=== PATIENT | female | born 1935 | race Caucasian/White ===

== ENCOUNTER 2017-07-23 05:33 | Observation (INO) | payer OTHER, MEDICARE ==
--- NOTE | 2017-07-23 05:52 | EDPHY ---
H & P Time Seen by Provider: 07/23/17 05:40 HPI/ROS: Chief Complaint: Abdominal pain HPI: 81-year-old woman who is visiting family from out of town for the woke this morning with pain in her right lower quadrant. Patient states the pain was initially severe. Does not have a history of similar pain in the past. Right now is a 5 on 10. It was worsened that earlier. She is not taking any medication for this. No nausea or vomiting. No diarrhea or constipation. She has had some increasing urination but has been drinking more water recently. Has a history of a hysterectomy in the past , otherwise no abdominal surgeries. No fevers or chills. No chest pain or shortness of breath. ROS: 10 point Review of Systems is negative except as noted in the HPI. PMH: Parkinson's disease, hyperlipidemia, osteoporosis Social History: No smoking, no alcohol, no recreational drug use Family History: non-contributory Physical Exam: Gen: Awake, Alert, No Distress HEENT: Nose: no rhinorrhea Eyes: PERRLA, EOMI Mouth: Moist mucosa Neck: Supple, no JVD Chest: nontender, lungs clear to auscultation Heart: S1, S2 normal, no murmur Abd: Soft, she has diffuse abdominal tenderness with voluntary guarding, pain is worse in the right right lower quadrant. Back: no CVA tenderness, no midline tenderness Ext: no edema, non-tender, full range of motion without pain Skin: no rash Neuro: CN II-XII intact, Sensation grossly intact, Strength 5/5 in bilateral upper and lower extremities (Carlos Tobin) Constitutional: Initial Vital Signs Temperature (C) 36.5 C 07/23/17 05:46 Heart Rate 73 07/23/17 05:46 Respiratory Rate 16 07/23/17 05:46 Blood Pressure 208/119 H 07/23/17 05:46 O2 Sat (%) 95 07/23/17 05:46 O2 Delivery Mode Room Air Allergies/Adverse Reactions: lorazepam [From Ativan] Allergy (Verified 07/23/17 05:43) Home Medications: Medication Instructions Recorded Aricept 07/23/17 Atorvastatin Calcium 07/23/17 Eliquis 07/23/17 Metoprolol Tartrate 07/23/17 Sinemet 25/100 MG (*) 07/23/17 Medical Decision Making ED Course/Re-evaluation: 9-year-old female presenting with right lower abdominal pain. She will need CT scan. Actively range her hip with full range of motion without tenderness. Patient's laboratory evaluations are unremarkable at this time. She is pending CT scan 0700 patient signed out to the Dr. Javed pending CT scan results. (Carlos Tobin) This patient was turned over to me at change of shift. I discussed the CT results with Dr. Mak Do on [address] Do feels like there is clearly some chronic constipation with small bowel fecalization but there is a question of a cecal volvulus that might be early. I reexamined the patient and she clearly still has right lower quadrant tenderness and a little bit of distention which is out of proportion to the rest of her abdominal exam. I had a long discussion with the patient and her family and we will admit the patient for a few hours of observation. In the interim we will give her Gastrografin orally and perform a upper GI small bowel follow-through type procedure and hopefully clean out her bowels in addition. Although she has had bowel movements here she still having right lower quadrant tenderness. I will admit this patient to Dr. dangelo seen from the hospitalist service. (Viktor Javed) - Data Points Laboratory Results: Laboratory Results 07/23/17 06:00 07/23/17 06:00 07/23/17 07/23/17 07/23/17 06:30 06:00 06:00 WBC 5.84 10^3/uL 10^3/uL (3.80-9.50) RBC 4.99 10^6/uL 10^6/uL (4.40-6.38) Hgb 16.3 g/dL g/dL (13.7-17.5) Hct 48.4 % % (40.0-51.0) MCV 97.0 fL fL (81.5-99.8) MCH 32.7 pg pg (27.9-34.1) MCHC 33.7 g/dL g/dL (32.4-36.7) RDW 12.9 % % (11.5-15.2) Plt Count 186 10^3/uL 10^3/uL (150-400) MPV 11.0 fL fL (8.7-11.7) Neut % (Auto) 54.4 % % (39.3-74.2) Lymph % (Auto) 34.9 % % (15.0-45.0) Coal % (Auto) 7.7 % % (4.5-13.0) Eos % (Auto) 1.9 % % (0.6-7.6) Baso % (Auto) 0.9 % % (0.3-1.7) Nucleat RBC Rel Count 0.0 % % (0.0-0.2) Absolute Neuts (auto) 3.18 10^3/uL 10^3/uL (1.70-6.50) Absolute Lymphs (auto) 2.04 10^3/uL 10^3/uL (1.00-3.00) Absolute Monos (auto) 0.45 10^3/uL 10^3/uL (0.30-0.80) Absolute Eos (auto) 0.11 10^3/uL 10^3/uL (0.03-0.40) Absolute Basos (auto) 0.05 10^3/uL 10^3/uL (0.02-0.10) Absolute Nucleated RBC 0.00 10^3/uL 10^3/uL (0-0.01) Immature Gran % 0.2 % % (0.0-1.1) Immature Gran # 0.01 10^3/uL 10^3/uL (0.00-0.10) Sodium 147 mEq/L H mEq/L (134-144) Potassium 3.9 mEq/L mEq/L (3.5-5.2) Chloride 104 mEq/L mEq/L (97-110) Carbon Dioxide 33 mEq/l H mEq/l (22-31) Anion Gap 10 mEq/L mEq/L (8-16) BUN 25 mg/dL H mg/dL (7-23) Creatinine 0.8 mg/dL mg/dL (0.7-1.3) Estimated GFR > 60 Glucose 82 mg/dL mg/dL (70-100) Calcium 10.0 mg/dL mg/dL (8.5-10.4) Total Bilirubin 1.1 mg/dL mg/dL (0.1-1.4) AST 37 IU/L IU/L (17-59) ALT 52 IU/L IU/L (21-72) Alkaline Phosphatase 107 IU/L IU/L (38-126) Total Protein 6.9 g/dL g/dL (6.3-8.2) Albumin 4.1 g/dL g/dL (3.5-5.0) Lipase 200 IU/L IU/L (23-300) Urine Color PALE YELLOW Urine Appearance CLEAR Urine pH 6.0 (5.0-7.5) Ur Specific [place] 1.008 (1.002-1.030) Urine Protein NEGATIVE (NEGATIVE) Urine Ketones NEGATIVE (NEGATIVE) Urine Blood 1+ H (NEGATIVE) Urine Nitrate NEGATIVE (NEGATIVE) Urine Bilirubin NEGATIVE (NEGATIVE) Urine Urobilinogen NEGATIVE EU EU (0.2-1.0) Ur Leukocyte Esterase TRACE H (NEGATIVE) Urine RBC 1-3 /hpf /hpf (0-3) Urine WBC 1-3 /hpf /hpf (0-3) Ur Epithelial Cells TRACE /lpf /lpf (NONE-1+) Urine Glucose NEGATIVE (NEGATIVE) Medications Given: Discontinued Medications Sodium Chloride (Ns) 1,000 mls @ 0 mls/hr IV ONCE ONE; Wide Open PRN Reason: Protocol Stop: 07/23/17 06:06 Last Admin: 07/23/17 06:25 Dose: 1,000 mls Departure - Departure Disposition: [facility] Inpatient Acute Clinical Impression: Cecal volvulus, Constipation by delayed colonic transit Condition: Fair Referrals: ALEXANDER GRULLON [Other] - As per Instructions
[2017-07-23] MEDS ORDERED: NS 1,000 ML IV ONE (06:05)
[2017-07-23 06:08] LABS: % IMMATURE GRANULYOCYTES 0.2 % (0.0-1.1); ABSOLUTE IMMATURE GRANULOCYTES 0.01 10^3/uL (0.00-0.10); ADD DIFF? NO; ADD MORPH? NO; ADD SCAN? NO; ATYPICAL LYMPHOCYTE FLAG 0 (0-99); FRAGMENT RBC FLAG 0 (0-99); LEFT SHIFT FLG 0 (0-99); LIPEMIA HEMOLYSIS FLAG 80 (0-99); MEAN CELL HEMOGLOBIN 32.7 pg (27.9-34.1); MEAN CELL HEMOGLOBIN CONCENTR. 33.7 g/dL (32.4-36.7); PLATELET CLUMPS FLAG 10 (0-99); PLATELET COUNT 186 10^3/uL (150-400); RED CELL DISTRIBUTION WIDTH 12.9 % (11.5-15.2)
[2017-07-23] MEDS ORDERED: IOPAMIDOL (ISOVUE-300) 100 ML BTL ONE (06:26)
[2017-07-23 06:28] LABS: ALBUMIN 4.1 g/dL (3.5-5.0); ALKALINE PHOSPHATASE 107 IU/L (38-126); ANION GAP 10 mEq/L (8-16); BILIRUBIN,TOTAL 1.1 mg/dL (0.1-1.4); CARBON DIOXIDE 33 mEq/l (22-31); CHLORIDE 104 mEq/L (97-110); GLOMERULAR FILTRATION RATE > 60; GLUCOSE 82 mg/dL (70-100); POTASSIUM 3.9 mEq/L (3.5-5.2); SODIUM 147 mEq/L (134-144); TOTAL PROTEIN 6.9 g/dL (6.3-8.2)
[2017-07-23 06:40] LABS: COLOR PALE YELLOW; LEUKOCYTE ESTERASE,URINE TRACE (NEGATIVE); NITRITE,URINE NEGATIVE (NEGATIVE)
[2017-07-23 08:05] VITALS: RESP 18
[2017-07-23] MEDS ORDERED: ACETAMINOPHEN 325 MG TAB PO PRN (09:13)
[2017-07-23] MEDS ORDERED: ONDANSETRON 4 MG/2 ML VIAL IVP PRN (09:13)
[2017-07-23] MEDS ORDERED: ONDANSETRON DISINTEGRATING 4 MG TAB PO PRN (09:13)
[2017-07-23] MEDS ORDERED: NS 1,000 ML IV SCH (09:15)
[2017-07-23] MEDS ORDERED: METOPROLOL TARTRATE 25 MG TAB PO SCH (09:18)
[2017-07-23] MEDS ORDERED: CARBIDOPA/LEVODOPA 25 MG/100 MG TAB PO SCH ×4 (10:15→17:00)
--- NOTE | 2017-07-23 11:16 | ASMTCMCOM ---
CM Note CM Note Notes: Pt. is an 81-year-old woman visiting the [place] area for Thanksgiving. Pt. admitted to run tests due to her abdominal pain. Hx. hysterectomy, Parkinsons, osteoporosis, and hyperlipidemia. Pt. lives w/ her Declan in [place]. Anticipate indpendent d/c when ready. CM available should d/c POC change. Date Signed: 07/23/2017 11:15 AM Electronically Signed By:Ivone Ramírez LCSW
[2017-07-23 11:26] VITALS: BP 168/92; PULSE 63; TEMP 97.9; O2SAT 94
--- NOTE | 2017-07-23 12:00 | GCON ---
[f rep st] CONSULTATION DATE OF CONSULTATION: 07/23/2017 REFERRING PHYSICIAN: Viktor Javed MD HISTORY OF PRESENT ILLNESS: The patient is an 81-year-old woman with Parkinson disease who woke up abruptly in the early hours of the morning with abdominal pain. It was initially severe and has improved since coming into the emergency room. She has had a history of bloating but does not have nausea, vomiting. No sick contacts. She denies diarrhea. PAST HISTORY: Parkinson disease, hyperlipidemia, osteoporosis. PAST SURGICAL HISTORY: Hysterectomy. SOCIAL HISTORY: She denies tobacco, alcohol, and recreational drug use. She is traveling from the [facility] to visit family for the holidays. FAMILY HISTORY: Noncontributory. REVIEW OF SYSTEMS: Significant for symptoms associated with Parkinson disease, some constipation, some bloating. Otherwise, 10-point review of systems negative. PHYSICAL EXAM: VITALS: Reviewed. GENERAL: A pleasant, well-nourished, well- groomed woman, sitting up in bed with family at bedside. HEENT: Normocephalic. No gross hearing deficits. Mucous membranes moist. Pupils equal and round. No scleral icterus. LUNGS: Clear to auscultation bilaterally. No increased work of breathing. CARDIAC: Regular rate. ABDOMEN : Bowel sounds are hypoactive. She is slightly distended. ABDOMEN: Firm. She is tender to percussion. There are no peritoneal signs. SKIN: Warm and dry. NEURO: No obvious tremors. PSYCH: Mood and affect normal. RESULTS REVIEW: I personally reviewed her CT images and she has significant constipation. She has fecalization of the distal small bowel. There does not appear to be free fluid. There is also concern of a renal cell carcinoma due to a 1.5 cm right-sided renal mass. IMPRESSION AND PLAN: 81-year-old with acute onset abdominal pain that is improving. I have requested that she drink contrast and then get an x-ray ordered around noon. This will better show us the outline of the bowel. If she should have a bowel movement before then and her pain is improved, then the x-ray would not be needed. If her pain escalates, then we did briefly discuss going to the operating room. I am hopeful she will not need to go to the operating room. She will need to follow up with her care provider in [place] about the renal mass. I am also hoping that the Gastrografin will also be therapeutic and help clear out stool. I discussed with her the importance of good bowel protocol and talking about this with her primary care provider as well as with her neurologist. /[id number]/MODL MTDD
--- NOTE | 2017-07-23 12:15 | GHP ---
[f rep st] HISTORY AND PHYSICAL DATE OF ADMISSION: 07/23/2017 CHIEF COMPLAINT: Abdominal pain. HISTORY OF PRESENT ILLNESS: An 81-year-old female with a history of Parkinson's , visiting from [place], who arrived 72 hours prior to presentation and reports being in good state of health for the early part of her visit. Patient ate normally yesterday, drank what she described as a lot of fluids and went to sleep without complication. Patient awoke morning of presentation with severe abdominal discomfort, most pronounced in the right lower quadrant, associated with some nausea, no vomiting. Patient reports that she has been passing stools normally for her, which is every day or every other day, without blood. Patient denies any dysuria, hematuria, lower extremity edema, chest pain, shortness of breath, headaches, vision changes, subjective fevers or chills. PAST MEDICAL HISTORY: 1. Parkinson's-patient walks with a walker. 2. Hypertension. 3. Hyperlipidemia. SOCIAL HISTORY: Patient quit smoking 50 years ago. Does not drink alcohol or use illicit drugs. FAMILY HISTORY: Positive for a brother who had a volvulus. REVIEW OF SYSTEMS: A 10-point review is negative with the exception of that reported in the HPI. PHYSICAL EXAMINATION: VITAL SIGNS: Blood pressure 175/113, heart rate 64, respiratory rate 18, 95% on room air, temperature 36.3. GENERAL: This is a very healthy, pleasant elderly female, lying flat in bed. HEENT: Notable for moist mucous membranes. Eye exam is negative for any icterus. CARDIAC: Patient has regular rate and rhythm. A systolic murmur is appreciated. PULMONARY: She is clear to auscultation bilaterally. GASTROINTESTINAL: There are diminished bowel sounds. Abdomen is soft. She is tender to palpation in the right lower quadrant greater than the left. No rebound or guarding is appreciated. MUSCULOSKELETAL: Negative for any lower extremity edema. SKIN: Negative for any rashes. NEUROLOGIC: She is alert and oriented x3. PSYCHIATRIC: She is pleasant and cooperative on interview and examination. DATA: White count 5.8, hematocrit 48.4. Sodium 147, creatinine 0.8. Liver function tests are normal. Urinalysis shows trace leukocyte esterase, 1-[address] of the abdomen, which I personally reviewed and interpreted, shows constipation. The final radiographic read is not available, but the reported concern is for evolving cecal volvulus. ASSESSMENT AND PLAN: This is an 81-year-old female, presenting with complaints of abdominal pain. 1. Acute abdominal pain secondary to constipation, with concern for possible evolving cecal volvulus. Will admit the patient, keep n.p.o. minus medications and sips of water. Patient has received Gastrografin in the emergency department and will have upright KUB imaging performed in a couple hours. We will treat p.r.n. with pain medications if needed and IV fluids. The hope is that the patient will pass stool after taking the Gastrografin and relieve whatever constipation she has. Dr. Daniel from general surgery has been consulted and is following along. 2. Parkinson's. We will continue her home dosing of Sinemet. 3. Hypertension. We will continue her home medications. Systolics were in the 170s to 180s prior to taking her morning medications. 4. Prophylaxis. Holding on Lovenox as there is surgical consultation for possible volvulus. 5. Diet is n.p.o. with IV fluids. 6. Disposition: I expect in less than 2 midnights if the patient responds well to the Gastrografin and is able to successfully pass stool and have normal interval imaging. I have discussed the case with Dr. Daniel. She will be following along and helping interpret the upright KUB imaging this afternoon. /[id number]/MODL MTDD
--- NOTE | 2017-07-23 12:49 | SOAPPROG ---
SOAP Progress Note Assessment/Plan: Assessment: no evidence of volvulus. Will monitor symptoms. Plan: 07/23/17 12:48 Objective: Vital Signs Temp Pulse Resp BP Pulse Ox 36.6 C 63 18 168/92 H 94 07/23/17 11:26 07/23/17 11:26 07/23/17 11:26 07/23/17 11:26 07/23/17 11:26 ICD10 Worksheet Patient Problems: Problems Problem Status Onset Cecal volvulus Acute Constipation by delayed colonic transit Acute
--- NOTE | 2017-07-23 22:52 | GDS ---
[f rep st] DISCHARGE SUMMARY DISCHARGE DIAGNOSES: Include: 1. Acute abdominal pain. 2. Severe constipation. 3. Parkinson's. 4. Hypertension. HISTORY OF PRESENT ILLNESS: This is an 81-year-old female who presents with complaints of abdominal pain. For details of the patient's initial presentation, please see the History and Physical dated 09/22/2016. CONSULTATIVE SERVICES: General Surgery, Dr. Daniel. PROCEDURES: On 07/23/2017, patient underwent CT of the abdomen which showed constipation and concern for possible evolving cecal volvulus. HOSPITAL COURSE BY ISSUE: Acute abdominal pain. The patient has known Parkinson's, had visible cons tipation on film with right lower quadrant pain. Was admitted for concerns involving cecal volvulus. Patient was treated with Gastrografin with anticipated imaging. She successfully passed stool mult iple times, and then had normal imaging, un-concerning for possible volvulus. She was advanced to a normal diet which she tolerated, and she is discharged home with recommendations for ongoing stool ma nagement, to use prunes in the morning and MiraLAX in the afternoon if unsuccessful stooling by late afternoon. The patient is to follow with her primary care provider upon returning home to [place], a fter her visit to [place], [place]. MEDICATIONS: At the time of disposition, please reference medication reconciliation form printed on 07/23/2017. Of note, no medications were changed from her home regimen. A p.r.n. dosing of MiraLAX was added as needed for daily stooling. PENDING STUDIES: At the time of this dictation, none. TIME SPENT: I spent greater than 30 minutes in the planning and coordination of this discharge. /[id number]/MODL
--- NOTE | 2017-07-24 10:16 | ASDISCHSUM ---
Discharge Information Plan Status:Home with No Needs Medically Cleared to Leave:07/22/2017 Discharge Date:07/23/2017 03:08 PM CM D/C Disposition:Home, Routine, Self-Care ADT D/C Disposition:Home, Routine, Self-Care Projected Discharge Date:07/23/2017 12:00 AM Transportation at D/C: Discharge Delay Reason: Follow-Up Date:07/23/2017 12:00 AM Discharge Slot: Final Diagnosis: Placement Information Patient Contact Information Contact Name:HENRY Relationship: Address:[address] [place] [address] Work Phone: City:[place] Alternate Phone: State/Zip Code:[place] [address] Email: Financial Information Financial Class: Primary Plan Desc:MEDICARE OUTPATIENT Primary Plan Number:[id number] Secondary Plan Desc:[employer]/M[employer] SUPPLEMENT Secondary Plan Number:[id number] Assessment Information BC CM Progress Note CM Note CM Note Notes: Pt. is an 81-year-old woman visiting the [facility] for Thanksgiving. Pt. admitted to run tests due to her abdominal pain. Hx. hysterectomy, Parkinsons, osteoporosis, and hyperlipidemia. Pt. lives w/ her Declan in [place]. Anticipate indpendent d/c when ready. CM available should d/c POC change. Date Signed: 07/23/2017 11:15 AM Electronically Signed By:Ivone Ramírez LCSW Intervention Information
[2017-07-27 13:19] LABS: CREATININE 0.8 mg/dL (0.6-1.0)
[2017-07-27 13:20] LABS: ALANINE AMINOTRANSFERASE 52 IU/L (9-52); ASPARTATE AMINOTRANSFERASE 37 IU/L (14-46); RED BLOOD CELL COUNT 4.99 10^6/uL (4.18-5.33)
[2017-07-27 13:21] LABS: HEMATOCRIT 48.4 % (38.0-47.0); HEMOGLOBIN 16.3 g/dL (12.6-16.3)
== END 2017-07-23 15:08 | disposition home or self-care (01) ==
LOC: F3E 08:55
PROVIDERS: ADMIT Hospitalist; ATTEND Hospitalist
DX: K59.00 Constipation, unspecified (principal); R10.31 Right lower quadrant pain; G20 Parkinson's disease; I10 Essential (primary) hypertension; E78.5 Hyperlipidemia, unspecified; M81.0 Age-related osteoporosis without current pathological fracture
CPT/HCPCS: 74000; 74177; G0378; Q9967